=== PATIENT | female | born 1985 | race Caucasian/White ===

== ENCOUNTER 2020-08-16 03:18 | Inpatient (IN) | payer BC, OTHER ==
[2020-08-16] MEDS ORDERED: AMPICILLIN - 2 GM in SODIUM CHLORIDE 100 ML IVPB ONE (05:04)
[2020-08-16] MEDS ORDERED: BETAMET ACET/BETAMET NA PH 30 MG/5 ML VIAL IM ONE ×2 (05:06→17:00)
[2020-08-16] MEDS ORDERED: MAGNESIUM SULFATE 20GM/500ML - 20 GM/500 ML INFUS.BAG IVPB SCH ×2 (05:15→22:00)
[2020-08-16] MEDS ORDERED: SODIUM CHLORIDE 100 ML IVPB ONE (05:18)
[2020-08-16] MEDS ORDERED: AMPICILLIN SODIUM 1 GM VIAL ONE ×4 (05:18→20:49)
[2020-08-16] MEDS: MAGNESIUM 4GM/H20 - 4 GM/100 ML IVPB IVPB SCH (05:45)
[2020-08-16 06:06] LABS: BASO % 0.3 % (0-2.0); EOS % 0.8 % (0-4.5); HEMATOCRIT 36.9 % (32.4-45.2); HEMOGLOBIN 12.2 GM/dL (10.7-15.3); LYMPH % 19.6 % (8-40); MCH 28.7 pg (25.7-33.7); MEAN CELL VOLUME 86.8 fl (80-96); MEAN PLT VOLUME 10.5 fl (7.5-11.1); MONO % 6.1 % (3.8-10.2); NEUT % 73.2 % (42.8-82.8); PLATELET COUNT 124 K/MM3 (134-434); RBC 4.25 M/mm3 (3.60-5.2); RDW 13.5 % (11.6-15.6); WHITE BLOOD COUNT 12.3 K/mm3 (4.0-10.0)
[2020-08-16 06:19] LABS: INR 0.88 (0.83-1.09); PROTHROMBIN TIME (PATIENT) 10.7 SEC (9.7-13.0)
[2020-08-16 06:20] LABS: POTASSIUM 4.5 mmol/L (3.5-5.1)
[2020-08-16 06:21] LABS: CALCIUM 8.9 mg/dL (8.5-10.1)
[2020-08-16 06:22] LABS: BLOOD UREA NITROGEN 12.4 mg/dL (7-18); MAGNESIUM 2.1 mg/dL (1.8-2.4)
[2020-08-16 06:25] LABS: CREATININE 0.8 mg/dL (0.55-1.3)
[2020-08-16 06:28] LABS: EPI CELLS 32 /uL (0-25.1); HYALINE CASTS 0 /uL (0-3.1); URINE APPEARANCE CLEAR; URINE BACTERIA 749 /uL (0-1359); URINE BILIRUBIN NEGATIVE (NEGATIVE); URINE COLOR YELLOW; URINE GLUCOSE (UA) NEGATIVE (NEGATIVE); URINE KETONE NEGATIVE (NEGATIVE); URINE LEUK ESTERASE 2+ (NEGATIVE); URINE NITRITE NEGATIVE (NEGATIVE); URINE PROTEIN NEGATIVE (NEGATIVE); URINE RBC 1 /uL (0-23.9); URINE UROBILINOGEN 0.2 mg/dL (0.2-1.0); URINE WBC 92 /uL (0-25.8)
[2020-08-16 06:40] VITALS: BMI 28.3
[2020-08-16 08:28] LABS: HIV INTERPRETATION NEGATIVE (NEGATIVE)
[2020-08-16] MEDS ORDERED: PRENATAL VITAMINS W/ FOLIC ACID TABLET (FP) PO ONE (09:00)
[2020-08-16] MEDS: PRENATAL VITAMINS W/ FOLIC ACID TABLET (FP) PO SCH (09:06)
[2020-08-16] MEDS: AMPICILLIN - 1 GM in SODIUM CHLORIDE 100 ML IVPB SCH ×3 (09:06→20:58)
[2020-08-16] MEDS ORDERED: MAGNESIUM SULFATE 20GM/500ML - 20 GM/500 ML INFUS.BAG ONE (16:21)
[2020-08-16] MEDS: DEXTROSE 5%-LACTATED RINGERS 1,000 ML IV SCH (16:30)
[2020-08-17] MEDS ORDERED: AMPICILLIN SODIUM 1 GM VIAL ONE (03:01)
[2020-08-17] MEDS: AMPICILLIN - 1 GM in SODIUM CHLORIDE 100 ML IVPB SCH ×2 (03:08→09:06)
[2020-08-17] MEDS ORDERED: MAGNESIUM SULFATE 20GM/500ML - 20 GM/500 ML INFUS.BAG ONE (05:46)
[2020-08-17] MEDS: MAGNESIUM 4GM/H20 - 4 GM/100 ML IVPB IVPB SCH (07:26)
[2020-08-17] MEDS: DEXTROSE 5%-LACTATED RINGERS 1,000 ML IV SCH (09:06)
[2020-08-17] MEDS: PRENATAL VITAMINS W/ FOLIC ACID TABLET (FP) PO SCH (11:00)
[2020-08-17] MEDS ORDERED: PRENATAL VITAMINS W/ FOLIC ACID TABLET (FP) PO ONE (11:40)
[2020-08-17] MEDS: AMOXICILLIN 500 MG CAPSULE (FP) PO SCH ×2 (15:24→22:50)
[2020-08-18] MEDS: AMOXICILLIN 500 MG CAPSULE (FP) PO SCH ×3 (06:16→21:26)
[2020-08-18] MEDS ORDERED: BISACODYL 10 MG SUPP.RECT PR ONE (10:19)
[2020-08-18] MEDS: PRENATAL VITAMINS W/ FOLIC ACID TABLET (FP) PO SCH (10:56)
[2020-08-19] MEDS: ACETAMINOPHEN 325 MG TABLET (FP) PO PRN (06:20)
[2020-08-19] MEDS: AMOXICILLIN 500 MG CAPSULE (FP) PO SCH ×3 (06:21→22:03)
[2020-08-19] MEDS: PRENATAL VITAMINS W/ FOLIC ACID TABLET (FP) PO SCH (10:13)
[2020-08-20] MEDS: ACETAMINOPHEN 325 MG TABLET (FP) PO PRN ×2 (02:25→10:17)
[2020-08-20] MEDS: AMOXICILLIN 500 MG CAPSULE (FP) PO SCH (06:05)
[2020-08-20 09:11] LABS: BASO % 0.4 % (0-2.0); HEMATOCRIT 38.7 % (32.4-45.2); HEMOGLOBIN 12.7 GM/dL (10.7-15.3); LYMPH % 20.3 % (8-40); MCH 28.9 pg (25.7-33.7); MCHC 32.9 g/dl (32.0-36.0); MEAN CELL VOLUME 87.8 fl (80-96); MEAN PLT VOLUME 10.4 fl (7.5-11.1); MONO % 5.9 % (3.8-10.2); NEUT % 72.4 % (42.8-82.8); PLATELET COUNT 136 K/MM3 (134-434); RBC 4.41 M/mm3 (3.60-5.2); RDW 13.9 % (11.6-15.6)
[2020-08-20] MEDS: PRENATAL VITAMINS W/ FOLIC ACID TABLET (FP) PO SCH (10:17)
[2020-08-20] MEDS ORDERED: NIFEdipine 10 MG CAPSULE (FP) ONE ×2 (10:57→13:40)
[2020-08-20] MEDS: NIFEdipine 10 MG CAPSULE (FP) PO SCH ×3 (11:00→21:59)
[2020-08-20 14:16] LABS: ANISOCYTOSIS 0; MACROCYTOSIS 0; PLATELET ESTIMATE DECREASED
[2020-08-21] MEDS: NIFEdipine 10 MG CAPSULE (FP) PO SCH ×3 (06:08→22:00)
[2020-08-21] MEDS: PRENATAL VITAMINS W/ FOLIC ACID TABLET (FP) PO SCH (09:52)
[2020-08-21] MEDS ORDERED: NIFEdipine 10 MG CAPSULE (FP) ONE ×2 (14:00→21:51)
[2020-08-21] MEDS: ACETAMINOPHEN 325 MG TABLET (FP) PO PRN (14:06)
[2020-08-21] MEDS ORDERED: BUTORPHANOL TARTRATE 1 MG/ML VIAL IVPUSH ONE (16:56)
[2020-08-21] MEDS ORDERED: PROMETHAZINE HCL 25 MG/1 ML VIAL IVPUSH ONE (16:56)
[2020-08-21] MEDS: LACTATED RINGERS SOLUTION 1,000 ML/1,000 ML INFUS.BAG IV SCH (18:21)
[2020-08-21] MEDS ORDERED: BUTORPHANOL TARTRATE 2 MG/ML VIAL ONE (19:35)
[2020-08-21] MEDS ORDERED: PROMETHAZINE HCL 25 MG/1 ML VIAL ONE (19:36)
[2020-08-22] MEDS: LACTATED RINGERS SOLUTION 1,000 ML/1,000 ML INFUS.BAG IV SCH (02:20)
[2020-08-22] MEDS ORDERED: NIFEdipine 10 MG CAPSULE (FP) ONE ×4 (05:57→11:59)
[2020-08-22] MEDS: NIFEdipine 10 MG CAPSULE (FP) PO SCH ×2 (06:00→13:55)
[2020-08-22] MEDS ORDERED: PRENATAL VITAMINS W/ FOLIC ACID TABLET (FP) PO ONE (08:27)
[2020-08-22] MEDS: PRENATAL VITAMINS W/ FOLIC ACID TABLET (FP) PO SCH (11:00)
[2020-08-22 13:15] VITALS: BP 120/72; PULSE 71; TEMP 97.9
== END 2020-08-22 15:40 | disposition home or self-care (01) | DRG 833 ==
LOC: JDEL 03:18 → J3WN 04:45 → JLDR 06:07 → J3W 08-17 12:12 → JLDR 08-21 19:23 → J3W 08-22 11:28
PROVIDERS: ADMIT Obstetrics & Gynecology; ATTEND Obstetrics & Gynecology
DX: O60.03 Preterm labor without delivery, third trimester (principal); Z3A.33 33 weeks gestation of pregnancy
CPT/HCPCS: 36415; 76815; 76817-TC; 80048; 81003; 83735; 85025; 85610; 85730; 86780; 86850; 86900; 86901; 87077; 87081; 87086; 87389; 96372; C9803; U0003

== ENCOUNTER 2020-08-27 11:34 | Inpatient (IN) | payer BC, OTHER ==
[2020-08-27] MEDS ORDERED: AMPICILLIN - 2 GM in SODIUM CHLORIDE 100 ML IVPB ONE (12:00)
[2020-08-27] MEDS ORDERED: LIDOCAINE HCL 1% PRESERVATIVE FREE - 30ML VIAL ONE (12:04)
[2020-08-27] MEDS ORDERED: OXYTOCIN 20 UNITS in 0.9% NS 20 UNIT/1,000 ML INFUS.BAG IV ONE ×2 (12:04→14:15)
[2020-08-27] MEDS ORDERED: AMPICILLIN SODIUM 2 GM VIAL ONE (12:04)
[2020-08-27 12:17] VITALS: BMI 28.1
[2020-08-27 14:10] LABS: CORD HCO3 21.9 mmHg (20-29); CORD HCO3 22.3 mmHg (20-29); CORD PCO2 54.2 mmHg (30-78); CORD PCO2 64.7 mmHg (30-78); CORD pH 7.156 (7.14-7.44); CORD pH 7.225 (7.14-7.44)
[2020-08-27 14:13] LABS: BASO % 0.2 % (0-2.0); EOS % 0.1 % (0-4.5); HEMATOCRIT 39.3 % (32.4-45.2); HEMOGLOBIN 12.7 GM/dL (10.7-15.3); MCH 28.5 pg (25.7-33.7); MCHC 32.3 g/dl (32.0-36.0); MEAN CELL VOLUME 88.4 fl (80-96); MONO % 3.6 % (3.8-10.2); NEUT % 81.1 % (42.8-82.8); PLATELET COUNT 159 K/MM3 (134-434); RBC 4.45 M/mm3 (3.60-5.2); RDW 14.3 % (11.6-15.6); WHITE BLOOD COUNT 13.9 K/mm3 (4.0-10.0)
[2020-08-27] MEDS ORDERED: BISACODYL 10 MG SUPP.RECT RC PRN (14:14)
[2020-08-27] MEDS ORDERED: WITCH HAZEL 50% (TUCKS) 40 PAD/JAR PAD TP PRN (14:14)
[2020-08-27] MEDS ORDERED: BENZOCAINE 20% 57 GM BOTTLE TP PRN (14:14)
[2020-08-27] MEDS ORDERED: METHYLERGONOVINE MALEATE 0.2 MG/1 ML AMP IM PRN (14:14)
[2020-08-27] MEDS ORDERED: BENZOCAINE 28 GM HEMORRHOIDAL OINTMENT TP PRN (14:14)
[2020-08-27] MEDS ORDERED: DEXTROSE 5%-LACTATED RINGERS 1,000 ML IV SCH (14:15)
[2020-08-27 14:18] LABS: INR 0.9 (0.83-1.09); PROTHROMBIN TIME (PATIENT) 10.9 SEC (9.7-13.0)
[2020-08-27 14:26] LABS: CALCIUM 8.5 mg/dL (8.5-10.1)
[2020-08-27 14:27] LABS: BLOOD UREA NITROGEN 12.2 mg/dL (7-18)
[2020-08-27 14:31] LABS: CREATININE 1.1 mg/dL (0.55-1.3)
[2020-08-27] MEDS ORDERED: OXYTOCIN 20 UNITS in 0.9% NS 20 UNIT/1,000 ML INFUS.BAG IV SCH ×2 (15:00→15:45)
[2020-08-27] MEDS ORDERED: ACETAMINOPHEN 325 MG TABLET (FP) ONE (15:09)
[2020-08-27] MEDS ORDERED: IBUPROFEN 600 MG TABLET (FP) PO ONE (15:09)
[2020-08-27] MEDS: ACETAMINOPHEN 325 MG TABLET (FP) PO PRN (15:10)
[2020-08-27] MEDS: IBUPROFEN 600 MG TABLET (FP) PO PRN (15:10)
[2020-08-27 15:20] LABS: HIV INTERPRETATION NEGATIVE (NEGATIVE)
[2020-08-27] MEDS: FERROUS SO4 325 MG TABLET (FP) PO SCH (17:43)
[2020-08-28] MEDS: IBUPROFEN 600 MG TABLET (FP) PO PRN ×3 (00:16→17:24)
[2020-08-28] MEDS: ACETAMINOPHEN 325 MG TABLET (FP) PO PRN ×4 (00:16→21:02)
[2020-08-28 08:35] LABS: BASO % 0.5 % (0-2.0); EOS % 1.2 % (0-4.5); HEMATOCRIT 35.7 % (32.4-45.2); HEMOGLOBIN 11.5 GM/dL (10.7-15.3); LYMPH % 24.6 % (8-40); MCH 28.4 pg (25.7-33.7); MCHC 32.3 g/dl (32.0-36.0); MEAN CELL VOLUME 87.8 fl (80-96); MEAN PLT VOLUME 9.7 fl (7.5-11.1); MONO % 5.8 % (3.8-10.2); NEUT % 67.9 % (42.8-82.8); PLATELET COUNT 132 K/MM3 (134-434); RBC 4.07 M/mm3 (3.60-5.2)
[2020-08-28] MEDS: PRENATAL VITAMINS W/ FOLIC ACID TABLET (FP) PO SCH (09:14)
[2020-08-28] MEDS: FERROUS SO4 325 MG TABLET (FP) PO SCH ×2 (09:14→17:24)
[2020-08-28] MEDS ORDERED: SENNOSIDES/DOCUSATE COMBO (SENNA PLUS) TABLET (UD) PO PRN (22:00)
[2020-08-29] MEDS: ACETAMINOPHEN 325 MG TABLET (FP) PO PRN ×2 (02:58→09:35)
[2020-08-29] MEDS: IBUPROFEN 600 MG TABLET (FP) PO PRN ×2 (02:59→09:34)
[2020-08-29] MEDS: FERROUS SO4 325 MG TABLET (FP) PO SCH (08:46)
[2020-08-29] MEDS: PRENATAL VITAMINS W/ FOLIC ACID TABLET (FP) PO SCH (09:34)
[2020-08-29 10:02] VITALS: BP 122/77; PULSE 67; TEMP 98.2
== END 2020-08-29 13:50 | disposition home or self-care (01) | DRG 807 ==
LOC: JLDR 11:34 → J3W 15:25
PROVIDERS: ADMIT Obstetrics & Gynecology; ATTEND Obstetrics & Gynecology
PROC: 10E0XZZ Delivery of Products of Conception, External Approach (ICD-10-PCS; principal; 2020-08-27)
PROC: 0W8NXZZ Division of Female Perineum, External Approach (ICD-10-PCS; 2020-08-27)
DX: O60.14X0 Preterm labor third trimester with preterm delivery third trimester, not applicable or unspecified (principal); Z37.0 Single live birth; Z3A.34 34 weeks gestation of pregnancy
CPT/HCPCS: 36415; 36600; 59409; 80048; 82803; 85025; 85610; 85730; 86780; 86850; 86900; 86901; 87389; C9803; U0003